=== PATIENT | female | born 1955 | race Caucasian/White ===

== ENCOUNTER 2017-05-14 06:20 | Emergency (ER) | payer OTHER ==
[~2017-05-14] VITALS: Ht 162.6 cm; Wt 68.4 kg
[2017-05-14 06:24] VITALS: BP 94/65
[2017-05-14] MEDS ORDERED: IBUPROFEN 200 MG TABLET PO ONE (10:00)
[2017-05-14] MEDS ORDERED: IBUPROFEN 200 MG TABLET ONE (10:08)
== END 2017-05-14 10:13 | disposition home or self-care (01) ==
LOC: ED 10:06
DX: S63.501A Unspecified sprain of right wrist, initial encounter (principal); J44.9 Chronic obstructive pulmonary disease, unspecified; E78.5 Hyperlipidemia, unspecified; I25.2 Old myocardial infarction; I25.10 Atherosclerotic heart disease of native coronary artery without angina pectoris; I11.0 Hypertensive heart disease with heart failure; I50.9 Heart failure, unspecified; Z90.49 Acquired absence of other specified parts of digestive tract; Z95.0 Presence of cardiac pacemaker; W19.XXXA Unspecified fall, initial encounter; Y93.89 Activity, other specified; Y99.8 Other external cause status; Y92.410 Unspecified street and highway as the place of occurrence of the external cause
CPT/HCPCS: 29125; 99284

== ENCOUNTER 2019-07-27 12:17 | Emergency (ER) | payer OTHER ==
[~2019-07-27] VITALS: Ht 162.6 cm; Wt 68.2 kg
[2019-07-27 12:48] VITALS: BP 122/72
== END 2019-07-27 13:33 | disposition home or self-care (01) ==
LOC: ED 13:00
DX: H66.002 Acute suppurative otitis media without spontaneous rupture of ear drum, left ear (principal); E11.9 Type 2 diabetes mellitus without complications; I25.10 Atherosclerotic heart disease of native coronary artery without angina pectoris; I25.2 Old myocardial infarction; J43.9 Emphysema, unspecified; I11.0 Hypertensive heart disease with heart failure; I50.9 Heart failure, unspecified; Z90.89 Acquired absence of other organs; Z95.0 Presence of cardiac pacemaker
CPT/HCPCS: 99281

== ENCOUNTER 2019-10-05 11:46 | Emergency (ER) | payer OTHER ==
[~2019-10-05] VITALS: Ht 162.6 cm; Wt 69.1 kg
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
--- NOTE | 2019-10-05 12:26 | NUR ---
TO XR PER PANDA
[2019-10-05] MEDS ORDERED: SIMV20TA19 PO (12:28)
[2019-10-05] MEDS ORDERED: CARV-39 PO (12:28)
[2019-10-05] MEDS ORDERED: TIOT4MIS2 INH (12:28)
[2019-10-05] MEDS ORDERED: GLIP10TA13 PO (12:28)
[2019-10-05] MEDS ORDERED: ALBU18HF INH (12:28)
[2019-10-05] MEDS ORDERED: FURO20TA3 PO (12:28)
[2019-10-05] MEDS ORDERED: RANI150T4 PO (12:28)
[2019-10-05] MEDS ORDERED: NICO-486 TP (12:28)
[2019-10-05] MEDS ORDERED: FAMO20TA7 PO (12:28)
[2019-10-05] MEDS ORDERED: LOSA50TA14 PO (12:28)
[2019-10-05] MEDS ORDERED: AMLO10TA8 PO (12:28)
[2019-10-05] MEDS ORDERED: GABA300C10 PO (12:28)
[2019-10-05] MEDS ORDERED: IBUP-1223 PO (12:28)
[2019-10-05 13:28] VITALS: BP 120/68
== END 2019-10-05 13:39 | disposition home or self-care (01) ==
LOC: ED 13:27
DX: S29.012A Strain of muscle and tendon of back wall of thorax, initial encounter (principal); S39.012A Strain of muscle, fascia and tendon of lower back, initial encounter; S20.212A Contusion of left front wall of thorax, initial encounter; G89.11 Acute pain due to trauma; I49.3 Ventricular premature depolarization; M54.2 Cervicalgia; I11.0 Hypertensive heart disease with heart failure; I50.9 Heart failure, unspecified; E11.9 Type 2 diabetes mellitus without complications; E78.5 Hyperlipidemia, unspecified; I25.10 Atherosclerotic heart disease of native coronary artery without angina pectoris; J44.9 Chronic obstructive pulmonary disease, unspecified; I25.2 Old myocardial infarction; F17.200 Nicotine dependence, unspecified, uncomplicated; Z95.0 Presence of cardiac pacemaker; Z90.49 Acquired absence of other specified parts of digestive tract; V43.52XA Car driver injured in collision with other type car in traffic accident, initial encounter; Y93.89 Activity, other specified; Y92.481 Parking lot as the place of occurrence of the external cause; Y99.8 Other external cause status
CPT/HCPCS: 71046; 72110; 93005; 99283

== ENCOUNTER 2019-12-29 13:15 | Emergency (ER) | payer OTHER ==
[~2019-12-29] VITALS: Ht 162.6 cm; Wt 69.9 kg
[~2019-12-29 13:15] MED LIST: ALBU18HF INH; AMLO10TA8 PO; CARV-39 PO; FAMO20TA7 PO; FURO20TA3 PO; GABA300C10 PO; GLIP10TA13 PO; IBUP-1223 PO; LOSA50TA14 PO; NICO-486 TP; RANI150T4 PO; SIMV20TA19 PO; TIOT4MIS2 INH
[2019-12-29 13:17] VITALS: BP 105/69
[2019-12-29] MEDS ORDERED: DOCUSATE 50 MG/5 ML, 10ML UDC ONE (13:50)
[2019-12-29] MEDS ORDERED: DOCUSATE 50 MG/5 ML, 10ML UDC PO ONE (14:00)
--- NOTE | 2019-12-29 14:08 | NUR ---
bilateral ear pain especially left ear. introduced colace to left ear and pt lying on side.
--- NOTE | 2019-12-29 14:12 | NUR ---
Bonnie cali in [facility] - 12/29/19 at 1413 by RUPESH RUFINA IN L EAR @[id number]
--- NOTE | 2019-12-29 14:56 | NUR ---
RECEIVED REPORT FROM NASRIN MILLER. PT RESTING ON [facility].
--- NOTE | 2019-12-29 15:00 | NUR ---
COLACE PLACED IN R EAR.
--- NOTE | 2019-12-29 15:34 | NUR ---
EAR IRRIGATION COMPLETE.
== END 2019-12-29 15:42 | disposition home or self-care (01) ==
LOC: ED 13:43
DX: H61.23 Impacted cerumen, bilateral (principal); F17.210 Nicotine dependence, cigarettes, uncomplicated; I11.0 Hypertensive heart disease with heart failure; I50.9 Heart failure, unspecified; I25.2 Old myocardial infarction; E11.9 Type 2 diabetes mellitus without complications; J43.9 Emphysema, unspecified; E78.5 Hyperlipidemia, unspecified; Z95.0 Presence of cardiac pacemaker; Z90.89 Acquired absence of other organs
CPT/HCPCS: 69209; 99283

== ENCOUNTER 2020-02-08 16:11 | Emergency (ER) | payer OTHER ==
[~2020-02-08] VITALS: Ht 162.6 cm; Wt 68.2 kg
--- NOTE | 2020-02-08 16:33 | NUR ---
DAUGHTER KULWINDER MONTERO WOULD LIKE TO BE CALLED WITH UPDATES [phone]
--- NOTE | 2020-02-08 16:38 | NUR ---
EDITOR & CO FOUNDER: PT TO ROOM FROM LOBBY
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
--- NOTE | 2020-02-08 16:58 | NUR ---
CALL LIGHT W/I REACH, VSS, NAD NOTED.
[2020-02-08 17:06] LABS: ALBUMIN 3.4 g/dL (3.4-5.0); ANION GAP 6 mmol/L (5-15); CALCIUM 9.2 mg/dL (8.5-10.1); CHLORIDE 103 mmol/L (98-107)
[2020-02-08 17:12] LABS: ALANINE AMINOTRANSFERASE 34 U/L (12-78); ALKALINE PHOSPHATASE 116 U/L (45-117); BILIRUBIN,TOTAL 0.5 mg/dL (0.2-1.0); CREATININE 1.22 mg/dL (0.55-1.02); TOTAL PROTEIN 8.3 g/dL (6.4-8.2); TROPONIN I < 0.015 ng/mL (0.000-0.045)
[2020-02-08 17:32] LABS: BASOPHILS # (AUTO) 0.04 x10^3/uL (0-0.1); BASOPHILS % (AUTO) 0 % (0-1); EOSINOPHILS # (AUTO) 0.18 x10^3/uL (0-0.4); EOSINOPHILS % (AUTO) 2 % (1-7); LYMPHOCYTES # (AUTO) 2.91 x10^3/uL (1-3.4); LYMPHOCYTES % (AUTO) 27 % (22-44); MD NO; MEAN CORPUSCULAR HEMOGLOBIN 31.1 pg (27.0-34.8); MEAN CORPUSCULAR HGB CONC 33.1 g/dL (32.4-35.8); MEAN PLATELET VOLUME 7.7 fL (7.4-10.4); MONOCYTES # (AUTO) 0.69 x10^3/uL (0.2-0.8); MONOCYTES % (AUTO) 6 % (2-9); NEUTROPHILS # (AUTO) 6.88 x10^3/uL (1.8-6.8); NEUTROPHILS % (AUTO) 64 % (42-75); PLATELET COUNT 270 x10^3/uL (130-400); RED BLOOD COUNT 5.14 x10^6/uL (3.82-5.3); RED CELL DISTRIBUTION WIDTH 13.1 % (9.6-15.2)
[2020-02-08 17:39] VITALS: BP 108/74
--- NOTE | 2020-02-08 17:40 | NUR ---
ALL TESTS RESULTED, CHART UP FOR RECHECK. PT AWARE. VSS, NAD NOTED.
--- NOTE | 2020-02-08 18:38 | NUR ---
Patient/Caregiver given discharge instructions and they have confirmed that they understand the instructions. Patient ambulatory with steady gait.
== END 2020-02-08 18:39 | disposition home or self-care (01) ==
LOC: ED 18:30
DX: R05 Cough (principal); Z20.828 Contact with and (suspected) exposure to other viral communicable diseases; R07.9 Chest pain, unspecified; R94.31 Abnormal electrocardiogram [ECG] [EKG]; I11.0 Hypertensive heart disease with heart failure; I50.9 Heart failure, unspecified; E11.9 Type 2 diabetes mellitus without complications; I25.2 Old myocardial infarction; I25.10 Atherosclerotic heart disease of native coronary artery without angina pectoris; J43.9 Emphysema, unspecified
CPT/HCPCS: 36415; 71045; 80053; 84484; 85025; 87635; 93005; 99283